=== PATIENT | male | born 1960 | race African-American/Black ===

== ENCOUNTER 2017-10-11 10:36 | Inpatient (IN) | payer OTHER ==
[2017-10-11 11:10] VITALS: BMI 22.8
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
[2017-10-11] MEDS ORDERED: MAG HYDROX/AL HYDROX/SIMETH 30 ML UNIT-DOSE CUP PO PRN (12:48)
[2017-10-11] MEDS ORDERED: guaiFENesin/D-METHORPHAN HB 10 ML UNIT-DOSE CUPS PO PRN (12:48)
[2017-10-11] MEDS ORDERED: MAGNESIUM CITRATE 300 ML BOTTLE PO PRN (12:48)
[2017-10-11] MEDS ORDERED: LOPERAMIDE HCL 2 MG CAPSULE PO PRN (12:48)
[2017-10-11] MEDS ORDERED: ACETAMINOPHEN 325 MG TABLET (FP) PO PRN (12:48)
[2017-10-11] MEDS ORDERED: P-EPHED 60MG/TRIPROLIDI 2.5MG TABLET PO PRN (12:48)
[2017-10-11] MEDS ORDERED: IBUPROFEN 400 MG TABLET (FP) PO PRN (12:48)
[2017-10-11] MEDS ORDERED: hydrOXYzine PAMOATE 25 MG CAPSULE (FP) PO PRN (12:48)
[2017-10-11] MEDS ORDERED: chlordiazePOXIDE HCL 25 MG CAPSULE PO PRN (12:48)
[2017-10-11] MEDS ORDERED: MENTHOL/PHENOL 1 EACH UD MM PRN (12:48)
[2017-10-11] MEDS ORDERED: MAGNESIUM HYDROX 2400MG/30ML ORAL SUSPENSION 30 ML CUP PO PRN (12:48)
[2017-10-11] MEDS ORDERED: chlordiazePOXIDE HCL 25 MG CAPSULE PO ONE (14:00)
[2017-10-11] MEDS: chlordiazePOXIDE HCL 25 MG CAPSULE PO SCH ×2 (17:45→22:29)
[2017-10-11 17:59] LABS: URINE APPEARANCE CLEAR; URINE BILIRUBIN NEGATIVE (NEGATIVE); URINE BLOOD NEGATIVE (NEGATIVE); URINE COLOR LTYELLOW; URINE GLUCOSE (UA) NEGATIVE (NEGATIVE); URINE KETONE NEGATIVE (NEGATIVE); URINE NITRITE NEGATIVE (NEGATIVE); URINE PROTEIN NEGATIVE (NEGATIVE); URINE UROBILINOGEN NEGATIVE mg/dL (0.2-1.0)
[2017-10-11 21:59] LABS: URINE LEUK ESTERASE Negative (NEGATIVE)
[2017-10-11] MEDS: levETIRAcetam 500 MG TABLET (FP) PO SCH (22:24)
[2017-10-11] MEDS: THIAMINE HCL 100 MG TABLET (FP) PO SCH (22:24)
[2017-10-11] MEDS: GABAPENTIN 300 MG CAPSULE (FP) PO SCH (22:24)
[2017-10-12] MEDS: chlordiazePOXIDE HCL 25 MG CAPSULE PO SCH ×4 (05:00→22:36)
--- NOTE | 2017-10-12 09:46 | EKG ---
Test Reason : Blood Pressure : / mmHG Vent. Rate : 081 BPM Atrial Rate : 081 BPM P-R Int : 132 ms QRS Dur : 072 ms QT Int : 358 ms P-R-T Axes : 072 049 056 degrees QTc Int : 415 ms NORMAL SINUS RHYTHM BIATRIAL ENLARGEMENT LEFT VENTRICULAR HYPERTROPHY CANNOT RULE OUT SEPTAL INFARCT , AGE UNDETERMINED ABNORMAL ECG NO PREVIOUS ECGS AVAILABLE Confirmed by JANIYA DELGADILLO, HAYLEY ([id number]) on 10/12/2017 9:46:27 AM Referred By: Confirmed By:HAYLEY DENSON MD
[2017-10-12 09:59] LABS: MCH 33.1 pg (25.7-33.7); MCHC 32.7 g/dl (32.0-35.9); MEAN CELL VOLUME 101.2 fl (80-96); MEAN PLT VOLUME 9.7 fl (7.5-11.1); PLATELET COUNT 177 K/MM3 (134-434); RDW 13.6 % (11.9-15.9); WHITE BLOOD COUNT 3.9 K/mm3 (4.0-10.0)
[2017-10-12 10:10] LABS: ALBUMIN 3.3 g/dl (3.4-5.0); ANION GAP 6 (8-16); CALCIUM 8.4 mg/dL (8.5-10.1); CO2 26 mmol/L (21-32); CREATININE 0.9 mg/dL (0.7-1.3); GLUCOSE,RANDOM 92 mg/dL (74-106); SGOT/AST 24 U/L (15-37); SGPT/ALT 30 U/L (12-78)
[2017-10-12 10:12] LABS: ALK PHOS 102 U/L (45-117); BILIRUBIN,TOTAL 0.7 mg/dL (0.2-1.0); TOT PROT 6.1 g/dl (6.4-8.2)
--- NOTE | 2017-10-12 10:19 | PN ---
S CIWA - CIWA Score Nausea/Vomitin Muscle Tremors: 3 Anxiety: 3 Agitation: 2 Paroxysmal Sweats: 1-Minimal Palms Moist Orientation: 0-Oriented Tacttile Disturbances: 1-Very Mild Itch/Numbness Auditory Disturbances: 1-Very Mild Visual Disturbances: 0-None Headache: 2-Mild CIWA-Ar Total Score: 16 BHS Progress Note (SOAP) Subjective: alert,irritable,anxious,interrupted sleep,tremor,pain in the body Objective: 10/12/17 10:16 Vital Signs Temperature 97.9 F 10/12/17 10:09 Pulse Rate 83 10/12/17 10:09 Respiratory Rate 18 10/12/17 10:09 Blood Pressure 127/69 10/12/17 10:09 O2 Sat by Pulse Oximetry (%) ekg nsr,lvh no chest pain,no sob,no dizziness Laboratory Last Values WBC 3.9 K/mm3 (4.0-10.0) L 10/12/17 07:00 RBC 3.67 M/mm3 (4.00-5.60) L 10/12/17 07:00 Hgb 12.1 GM/dL (11.7-16.9) 10/12/17 07:00 Hct 37.1 % (35.4-49) 10/12/17 07:00 MCV 101.2 fl (80-96) H 10/12/17 07:00 MCH 33.1 pg (25.7-33.7) 10/12/17 07:00 MCHC 32.7 g/dl (32.0-35.9) 10/12/17 07:00 RDW 13.6 % (11.9-15.9) 10/12/17 07:00 Plt Count 177 K/MM3 (134-434) 10/12/17 07:00 MPV 9.7 fl (7.5-11.1) 10/12/17 07:00 Sodium 142 mmol/L (136-145) 10/12/17 07:00 Potassium 4.1 mmol/L (3.5-5.1) 10/12/17 07:00 Chloride 110 mmol/L (98-107) H 10/12/17 07:00 Carbon Dioxide 26 mmol/L (21-32) 10/12/17 07:00 Anion Gap 6 (8-16) L 10/12/17 07:00 BUN 12 mg/dL (7-18) 10/12/17 07:00 Creatinine 0.9 mg/dL (0.7-1.3) D 10/12/17 07:00 Creat Clearance w eGFR > 60 (>60) 10/12/17 07:00 Random Glucose 92 mg/dL (74-106) D 10/12/17 07:00 Calcium 8.4 mg/dL (8.5-10.1) L 10/12/17 07:00 Total Bilirubin 0.7 mg/dL (0.2-1.0) 10/12/17 07:00 AST 24 U/L (15-37) 10/12/17 07:00 ALT 30 U/L (12-78) 10/12/17 07:00 Alkaline Phosphatase 102 U/L (45-117) 10/12/17 07:00 Total Protein 6.1 g/dl (6.4-8.2) L 10/12/17 07:00 Albumin 3.3 g/dl (3.4-5.0) L 10/12/17 07:00 Urine Color Ltyellow 10/11/17 15:30 Urine Appearance Clear 10/11/17 15:30 Urine pH 5.0 (5.0-8.0) 10/11/17 15:30 Ur Specific [place] 1.009 (1.001-1.035) 10/11/17 15:30 Urine Protein Negative (NEGATIVE) 10/11/17 15:30 Urine Glucose (UA) Negative (NEGATIVE) 10/11/17 15:30 Urine Ketones Negative (NEGATIVE) 10/11/17 15:30 Urine Blood Negative (NEGATIVE) 10/11/17 15:30 Urine Nitrite Negative (NEGATIVE) 10/11/17 15:30 Urine Bilirubin Negative (NEGATIVE) 10/11/17 15:30 Urine Urobilinogen Negative mg/dL (0.2-1.0) 10/11/17 15:30 Ur Leukocyte Esterase Negative (NEGATIVE) 10/11/17 15:30 Assessment: 10/12/17 10:18 withdrawal symptom Plan: continue detox
[2017-10-12] MEDS: PRENATAL VITAMINS W/ FOLIC ACID TABLET (FP) PO SCH (10:36)
[2017-10-12] MEDS: GABAPENTIN 300 MG CAPSULE (FP) PO SCH ×2 (10:36→22:35)
[2017-10-12] MEDS: levETIRAcetam 500 MG TABLET (FP) PO SCH ×2 (10:36→22:35)
[2017-10-12] MEDS: THIAMINE HCL 100 MG TABLET (FP) PO SCH (22:35)
[2017-10-13] MEDS: chlordiazePOXIDE HCL 25 MG CAPSULE PO SCH ×2 (05:26→10:42)
[2017-10-13] MEDS: PRENATAL VITAMINS W/ FOLIC ACID TABLET (FP) PO SCH (10:41)
[2017-10-13] MEDS: levETIRAcetam 500 MG TABLET (FP) PO SCH ×2 (10:41→22:21)
[2017-10-13] MEDS: GABAPENTIN 300 MG CAPSULE (FP) PO SCH ×2 (10:42→22:21)
--- NOTE | 2017-10-13 11:36 | PN ---
S CIWA - CIWA Score Nausea/Vomitin-No Nausea/No Vomiting Muscle Tremors: 4-Moderate,w/Arms Extend Anxiety: 3 Agitation: 3 Paroxysmal Sweats: 3 Orientation: 0-Oriented Tacttile Disturbances: 0-None Auditory Disturbances: 0-None Visual Disturbances: 0-None Headache: 0-None Present CIWA-Ar Total Score: 13 S Progress Note (SOAP) Subjective: agitation anxiety sweats interrupted sleep body aches Objective: 10/13/17 11:35 Vital Signs Temperature 97.7 F 10/13/17 09:46 Pulse Rate 61 10/13/17 09:46 Respiratory Rate 18 10/13/17 09:46 Blood Pressure 111/65 10/13/17 09:46 O2 Sat by Pulse Oximetry (%) Laboratory Tests 10/11/17 10/12/17 10/12/17 15:30 07:00 07:00 WBC 3.9 L RBC 3.67 L Hgb 12.1 Hct 37.1 MCV 101.2 H MCH 33.1 MCHC 32.7 RDW 13.6 Plt Count 177 MPV 9.7 Sodium 142 Potassium 4.1 Chloride 110 H Carbon Dioxide 26 Anion Gap 6 L BUN 12 Creatinine 0.9 D Creat Clearance w eGFR > 60 Random Glucose 92 D Calcium 8.4 L Total Bilirubin 0.7 AST 24 ALT 30 Alkaline Phosphatase 102 Total Protein 6.1 L Albumin 3.3 L Urine Color Ltyellow Urine Appearance Clear Urine pH 5.0 Ur Specific [place] 1.009 Urine Protein Negative Urine Glucose (UA) Negative Urine Ketones Negative Urine Blood Negative Urine Nitrite Negative Urine Bilirubin Negative Urine Urobilinogen Negative Ur Leukocyte Esterase Negative RPR Titer 10/12/17 07:00 WBC RBC Hgb Hct MCV MCH MCHC RDW Plt Count MPV Sodium Potassium Chloride Carbon Dioxide Anion Gap BUN Creatinine Creat Clearance w eGFR Random Glucose Calcium Total Bilirubin AST ALT Alkaline Phosphatase Total Protein Albumin Urine Color Urine Appearance Urine pH Ur Specific [place] Urine Protein Urine Glucose (UA) Urine Ketones Urine Blood Urine Nitrite Urine Bilirubin Urine Urobilinogen Ur Leukocyte Esterase RPR Titer Nonreactive aaox3 ambulating no acute distress Assessment: 10/13/17 11:35 withdrawal sx Plan: continue detox increase fluids
[2017-10-13] MEDS: chlordiazePOXIDE 5 MG CAPSULE PO SCH ×2 (17:32→22:21)
[2017-10-13] MEDS: THIAMINE HCL 100 MG TABLET (FP) PO SCH (22:21)
[2017-10-14] MEDS: chlordiazePOXIDE 5 MG CAPSULE PO SCH ×2 (05:20→10:28)
--- NOTE | 2017-10-14 10:08 | PN ---
S Progress Note (SOAP) Subjective: alert,irritable,anxious,interrupted sleep Objective: 10/14/17 10:06 Laboratory Last Values WBC 3.9 K/mm3 (4.0-10.0) L 10/12/17 07:00 RBC 3.67 M/mm3 (4.00-5.60) L 10/12/17 07:00 Hgb 12.1 GM/dL (11.7-16.9) 10/12/17 07:00 Hct 37.1 % (35.4-49) 10/12/17 07:00 MCV 101.2 fl (80-96) H 10/12/17 07:00 MCH 33.1 pg (25.7-33.7) 10/12/17 07:00 MCHC 32.7 g/dl (32.0-35.9) 10/12/17 07:00 RDW 13.6 % (11.9-15.9) 10/12/17 07:00 Plt Count 177 K/MM3 (134-434) 10/12/17 07:00 MPV 9.7 fl (7.5-11.1) 10/12/17 07:00 Sodium 142 mmol/L (136-145) 10/12/17 07:00 Potassium 4.1 mmol/L (3.5-5.1) 10/12/17 07:00 Chloride 110 mmol/L (98-107) H 10/12/17 07:00 Carbon Dioxide 26 mmol/L (21-32) 10/12/17 07:00 Anion Gap 6 (8-16) L 10/12/17 07:00 BUN 12 mg/dL (7-18) 10/12/17 07:00 Creatinine 0.9 mg/dL (0.7-1.3) D 10/12/17 07:00 Creat Clearance w eGFR > 60 (>60) 10/12/17 07:00 Random Glucose 92 mg/dL (74-106) D 10/12/17 07:00 Calcium 8.4 mg/dL (8.5-10.1) L 10/12/17 07:00 Total Bilirubin 0.7 mg/dL (0.2-1.0) 10/12/17 07:00 AST 24 U/L (15-37) 10/12/17 07:00 ALT 30 U/L (12-78) 10/12/17 07:00 Alkaline Phosphatase 102 U/L (45-117) 10/12/17 07:00 Total Protein 6.1 g/dl (6.4-8.2) L 10/12/17 07:00 Albumin 3.3 g/dl (3.4-5.0) L 10/12/17 07:00 Urine Color Ltyellow 10/11/17 15:30 Urine Appearance Clear 10/11/17 15:30 Urine pH 5.0 (5.0-8.0) 10/11/17 15:30 Ur Specific [place] 1.009 (1.001-1.035) 10/11/17 15:30 Urine Protein Negative (NEGATIVE) 10/11/17 15:30 Urine Glucose (UA) Negative (NEGATIVE) 10/11/17 15:30 Urine Ketones Negative (NEGATIVE) 10/11/17 15:30 Urine Blood Negative (NEGATIVE) 10/11/17 15:30 Urine Nitrite Negative (NEGATIVE) 10/11/17 15:30 Urine Bilirubin Negative (NEGATIVE) 10/11/17 15:30 Urine Urobilinogen Negative mg/dL (0.2-1.0) 10/11/17 15:30 Ur Leukocyte Esterase Negative (NEGATIVE) 10/11/17 15:30 RPR Titer Nonreactive (NONREACTIVE) 10/12/17 07:00 Vital Signs Temperature 98.2 F 10/14/17 06:12 Pulse Rate 60 10/14/17 06:12 Respiratory Rate 16 10/14/17 06:12 Blood Pressure 112/55 10/14/17 06:12 O2 Sat by Pulse Oximetry (%) Assessment: 10/14/17 10:07 withdrawal symptom Plan: continue detox,discharge in am
[2017-10-14] MEDS: GABAPENTIN 300 MG CAPSULE (FP) PO SCH ×2 (10:28→22:12)
[2017-10-14] MEDS: levETIRAcetam 500 MG TABLET (FP) PO SCH ×2 (10:28→22:12)
[2017-10-14] MEDS: PRENATAL VITAMINS W/ FOLIC ACID TABLET (FP) PO SCH (10:28)
[2017-10-14] MEDS: chlordiazePOXIDE HCL 10 MG CAPSULE PO SCH ×2 (17:31→22:12)
[2017-10-14] MEDS: THIAMINE HCL 100 MG TABLET (FP) PO SCH (22:12)
[2017-10-15] MEDS: chlordiazePOXIDE HCL 10 MG CAPSULE PO SCH ×2 (06:14→10:32)
--- NOTE | 2017-10-15 08:55 | DS ---
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 history of pneumothorax right nicotine dependence - Physical Exam Results Vital Signs: Vital Signs Temperature 96.3 F L 10/15/17 06:04 Pulse Rate 56 L 10/15/17 06:04 Respiratory Rate 16 10/15/17 06:04 Blood Pressure 95/53 10/15/17 06:04 O2 Sat by Pulse Oximetry (%) - Treatment Hospital Course: Detox Protocol Followed, Detoxed Safely, Responded well, Discharged Condition Good Patient has Accepted a Rehab Referral to: declined - Medication Discharge Medications: Ambulatory Orders Levetiracetam [Keppra -] 1,000 mg PO BID 09/20/16 Gabapentin [Neurontin -] 300 mg PO BID 10/11/17 - Diagnosis (1) Alcohol dependence with uncomplicated withdrawal Current Visit: No Status: Chronic (2) Cocaine dependence, uncomplicated Current Visit: No Status: Chronic (3) Seizure disorder Current Visit: No Status: Chronic (4) History of amputation of finger Current Visit: Yes Status: Acute (5) History of pneumothorax Current Visit: Yes Status: Acute (6) Nicotine dependence Current Visit: Yes Status: Chronic Qualifiers: Nicotine product type: cigarettes Substance use status: uncomplicated Qualified Code(s): F17.210 - Nicotine dependence, cigarettes, uncomplicated - AMA Did Patient Leave Against Medical Advice: No
[2017-10-15] MEDS: PRENATAL VITAMINS W/ FOLIC ACID TABLET (FP) PO SCH (10:32)
[2017-10-15] MEDS: GABAPENTIN 300 MG CAPSULE (FP) PO SCH (10:32)
[2017-10-15] MEDS: levETIRAcetam 500 MG TABLET (FP) PO SCH (10:32)
[2017-10-15 11:20] VITALS: BP 105/67; PULSE 66; TEMP 98.4
== END 2017-10-15 11:13 | disposition home or self-care (01) | DRG 774 ==
LOC: YASAS 10:36 → Y6N 13:12
PROVIDERS: ADMIT Internal Medicine; ATTEND Internal Medicine
PROC: HZ2ZZZZ Detoxification Services for Substance Abuse Treatment (ICD-10-PCS; principal; 2017-10-11)
DX: F10.230 Alcohol dependence with withdrawal, uncomplicated (principal); F14.20 Cocaine dependence, uncomplicated; F17.210 Nicotine dependence, cigarettes, uncomplicated; G40.909 Epilepsy, unspecified, not intractable, without status epilepticus; Z87.09 Personal history of other diseases of the respiratory system; Z89.029 Acquired absence of unspecified finger(s)
CPT/HCPCS: 36415; 80053; 81003; 85027; 86593; 93005; 93010

== ENCOUNTER 2021-11-03 14:53 | Inpatient (IN) | payer OTHER ==
[2021-11-03] MEDS ORDERED: MENTHOL/PHENOL 1 EACH UD MM PRN (15:20)
[2021-11-03] MEDS ORDERED: ONDANSETRON *ODT* 4 MG TABLET SL PRN (15:20)
[2021-11-03] MEDS ORDERED: ACETAMINOPHEN 325 MG TABLET (FP) PO PRN ×2 (15:20)
[2021-11-03] MEDS ORDERED: MAGNESIUM HYDROX 2400MG/30ML ORAL SUSPENSION 30 ML CUP PO PRN (15:20)
[2021-11-03] MEDS ORDERED: MAGNESIUM CITRATE 300 ML BOTTLE PO PRN (15:20)
[2021-11-03] MEDS ORDERED: IBUPROFEN 400 MG TABLET (FP) PO PRN (15:20)
[2021-11-03] MEDS ORDERED: NICOTINE 10 MG CARTRIDGE (INHALER) IH PRN (15:20)
[2021-11-03] MEDS ORDERED: METHOCARBAMOL 500 MG TABLET PO PRN (15:20)
[2021-11-03] MEDS ORDERED: MAG HYDROX/AL HYDROX/SIMETH 30 ML UNIT-DOSE CUP PO PRN (15:20)
[2021-11-03] MEDS ORDERED: BISMUTH SUBSALICYLATE 524 MG/30 ML PO PRN (15:20)
[2021-11-03 15:34] VITALS: BMI 21.6
[2021-11-03] MEDS: hydrOXYzine PAMOATE 25 MG CAPSULE (FP) PO SCH ×2 (17:59→21:48)
[2021-11-03] MEDS: PRENATAL VITAMINS W/ FOLIC ACID TABLET (FP) PO SCH (18:02)
[2021-11-03] MEDS: NICOTINE 14 MG/24 HOURS TOPICAL PATCH TD SCH (18:02)
[2021-11-03] MEDS ORDERED: levETIRAcetam 500 MG TABLET (FP) PO SCH ×2 (22:00)
[2021-11-03] MEDS ORDERED: MELATONIN 5 MG TABLETS PO SCH (22:00)
[2021-11-03] MEDS ORDERED: THIAMINE HCL 100 MG TABLET (FP) PO SCH (22:00)
[2021-11-03] MEDS ORDERED: PHENYTOIN NA EXTENDED 100 MG CAPSULE (FP) PO SCH ×2 (22:00)
[2021-11-04] MEDS: hydrOXYzine PAMOATE 25 MG CAPSULE (FP) PO SCH ×3 (06:58→10:56)
[2021-11-04 08:57] VITALS: BP 100/58; PULSE 59; TEMP 97.3
[2021-11-04] MEDS ORDERED: levETIRAcetam 500 MG TABLET (FP) PO SCH (10:00)
[2021-11-04] MEDS ORDERED: PHENYTOIN NA EXTENDED 100 MG CAPSULE (FP) PO SCH (10:15)
[2021-11-04 10:49] LABS: HEMATOCRIT 39.9 % (35.4-49); HEMOGLOBIN 13.4 GM/dL (11.7-16.9); MCH 35.6 pg (25.7-33.7); MCHC 33.6 g/dl (32.0-35.9); MEAN PLT VOLUME 9.7 fl (7.5-11.1); PLATELET COUNT 186 10^3/uL (134-434); RBC 3.76 M/mm3 (4.00-5.60); RDW 13.5 % (11.9-15.9); WHITE BLOOD COUNT 3.4 K/mm3 (4.0-10.0)
[2021-11-04 10:50] LABS: ALBUMIN 3.4 g/dl (3.4-5.0); CALCIUM 8.8 mg/dL (8.5-10.1)
[2021-11-04] MEDS: PRENATAL VITAMINS W/ FOLIC ACID TABLET (FP) PO SCH (10:50)
[2021-11-04 10:55] LABS: TOT PROT 6.6 g/dl (6.4-8.2)
[2021-11-04] MEDS: NICOTINE 14 MG/24 HOURS TOPICAL PATCH TD SCH (10:55)
[2021-11-04 10:56] LABS: BILIRUBIN,TOTAL 0.4 mg/dL (0.2-1)
== END 2021-11-04 12:00 | disposition other institution (70) | DRG 774 ==
LOC: YASAS 14:53 → UNDOADMIN 16:00 → Y3N 16:00
PROVIDERS: ADMIT Allergy & Immunology; ATTEND Allergy & Immunology
PROC: HZ2ZZZZ Detoxification Services for Substance Abuse Treatment (ICD-10-PCS; principal; 2021-11-03)
DX: F10.20 Alcohol dependence, uncomplicated (principal); F14.20 Cocaine dependence, uncomplicated; F17.210 Nicotine dependence, cigarettes, uncomplicated; G40.909 Epilepsy, unspecified, not intractable, without status epilepticus; Z89.022 Acquired absence of left finger(s); Z86.19 Personal history of other infectious and parasitic diseases; Z59.01 Sheltered homelessness
CPT/HCPCS: 36415; 80053; 85027; 86593; 86780; C9803; U0003; U0005

== ENCOUNTER 2021-11-04 11:50 | Inpatient (IN) | payer OTHER ==
[2021-11-04] MEDS ORDERED: IBUPROFEN 400 MG TABLET (FP) PO PRN (14:13)
[2021-11-04] MEDS ORDERED: MAGNESIUM CITRATE 300 ML BOTTLE PO PRN (14:13)
[2021-11-04] MEDS ORDERED: MAGNESIUM HYDROX 2400MG/30ML ORAL SUSPENSION 30 ML CUP PO PRN (14:13)
[2021-11-04] MEDS ORDERED: LOPERAMIDE HCL 2 MG CAPSULE PO PRN (14:13)
[2021-11-04] MEDS ORDERED: MAG HYDROX/AL HYDROX/SIMETH 30 ML UNIT-DOSE CUP PO PRN (14:13)
[2021-11-04] MEDS ORDERED: NICOTINE 10 MG CARTRIDGE (INHALER) IH PRN (14:13)
[2021-11-04] MEDS ORDERED: ACETAMINOPHEN 325 MG TABLET (FP) PO PRN (14:13)
[2021-11-04] MEDS ORDERED: guaiFENesin 200 MG/10 ML 10 ML UNIT-DOSE CUPS PO PRN (14:13)
[2021-11-04] MEDS ORDERED: hydrOXYzine PAMOATE 25 MG CAPSULE (FP) PO PRN (14:13)
[2021-11-04] MEDS ORDERED: P-EPHED 60MG/TRIPROLIDI 2.5MG TABLET PO PRN (14:13)
[2021-11-04] MEDS ORDERED: MENTHOL/PHENOL 1 EACH UD MM PRN (14:13)
[2021-11-04] MEDS ORDERED: PT OWN MED DRAWER 7, Y5N ONE (20:03)
[2021-11-04] MEDS: levETIRAcetam 500 MG TABLET (FP) PO SCH (21:46)
[2021-11-04] MEDS: THIAMINE HCL 100 MG TABLET (FP) PO SCH (21:46)
[2021-11-04] MEDS: PHENYTOIN NA EXTENDED 100 MG CAPSULE (FP) PO SCH (21:46)
[2021-11-04] MEDS: MELATONIN 5 MG TABLETS PO SCH (21:47)
[2021-11-05] MEDS: PHENYTOIN NA EXTENDED 100 MG CAPSULE (FP) PO SCH ×2 (09:03→21:30)
[2021-11-05] MEDS: NICOTINE 7 MG/24 HOURS TOPICAL PATCH TD SCH (09:04)
[2021-11-05] MEDS: levETIRAcetam 500 MG TABLET (FP) PO SCH ×2 (09:04→21:30)
[2021-11-05] MEDS: PRENATAL VITAMINS W/ FOLIC ACID TABLET (FP) PO SCH (09:04)
[2021-11-05] MEDS ORDERED: PT OWN MED DRAWER 7, Y5N ONE (20:46)
[2021-11-05] MEDS: MELATONIN 5 MG TABLETS PO SCH (21:30)
[2021-11-05] MEDS: THIAMINE HCL 100 MG TABLET (FP) PO SCH (21:30)
[2021-11-06] MEDS ORDERED: PT OWN MED DRAWER 7, Y5N ONE ×2 (08:43→20:14)
[2021-11-06] MEDS: NICOTINE 7 MG/24 HOURS TOPICAL PATCH TD SCH (09:40)
[2021-11-06] MEDS: PHENYTOIN NA EXTENDED 100 MG CAPSULE (FP) PO SCH ×2 (09:40→21:20)
[2021-11-06] MEDS: PRENATAL VITAMINS W/ FOLIC ACID TABLET (FP) PO SCH (09:40)
[2021-11-06] MEDS: levETIRAcetam 500 MG TABLET (FP) PO SCH ×2 (09:40→21:19)
[2021-11-06] MEDS: MELATONIN 5 MG TABLETS PO SCH (21:20)
[2021-11-06] MEDS: THIAMINE HCL 100 MG TABLET (FP) PO SCH (21:20)
[2021-11-07] MEDS: AMMONIUM LACTATE 12% LOTION 225 GM BOTTLE TP PRN (09:58)
[2021-11-07] MEDS: levETIRAcetam 500 MG TABLET (FP) PO SCH ×2 (09:58→21:29)
[2021-11-07] MEDS: PRENATAL VITAMINS W/ FOLIC ACID TABLET (FP) PO SCH (09:59)
[2021-11-07] MEDS: PHENYTOIN NA EXTENDED 100 MG CAPSULE (FP) PO SCH ×2 (09:59→21:29)
[2021-11-07] MEDS: NICOTINE 7 MG/24 HOURS TOPICAL PATCH TD SCH (09:59)
[2021-11-07] MEDS ORDERED: PT OWN MED DRAWER 7, Y5N ONE (19:34)
[2021-11-07] MEDS: THIAMINE HCL 100 MG TABLET (FP) PO SCH (21:29)
[2021-11-07] MEDS: MELATONIN 5 MG TABLETS PO SCH (21:30)
[2021-11-08] MEDS: PHENYTOIN NA EXTENDED 100 MG CAPSULE (FP) PO SCH ×2 (09:43→21:10)
[2021-11-08] MEDS: levETIRAcetam 500 MG TABLET (FP) PO SCH ×2 (09:43→21:10)
[2021-11-08] MEDS: PRENATAL VITAMINS W/ FOLIC ACID TABLET (FP) PO SCH (09:43)
[2021-11-08] MEDS: NICOTINE 7 MG/24 HOURS TOPICAL PATCH TD SCH (09:44)
[2021-11-08] MEDS: AMMONIUM LACTATE 12% LOTION 225 GM BOTTLE TP PRN (09:44)
[2021-11-08] MEDS: MELATONIN 5 MG TABLETS PO SCH (21:10)
[2021-11-08] MEDS: THIAMINE HCL 100 MG TABLET (FP) PO SCH (21:10)
[2021-11-09] MEDS ORDERED: PT OWN MED DRAWER 7, Y5N ONE ×2 (08:04→20:29)
[2021-11-09] MEDS: PHENYTOIN NA EXTENDED 100 MG CAPSULE (FP) PO SCH ×2 (09:17→21:15)
[2021-11-09] MEDS: NICOTINE 7 MG/24 HOURS TOPICAL PATCH TD SCH (09:18)
[2021-11-09] MEDS: PRENATAL VITAMINS W/ FOLIC ACID TABLET (FP) PO SCH (09:18)
[2021-11-09] MEDS: levETIRAcetam 500 MG TABLET (FP) PO SCH ×2 (09:18→21:16)
[2021-11-09] MEDS: MELATONIN 5 MG TABLETS PO SCH (21:15)
[2021-11-09] MEDS: THIAMINE HCL 100 MG TABLET (FP) PO SCH (21:16)
[2021-11-10] MEDS: PHENYTOIN NA EXTENDED 100 MG CAPSULE (FP) PO SCH ×2 (09:30→21:13)
[2021-11-10] MEDS: levETIRAcetam 500 MG TABLET (FP) PO SCH ×2 (09:31→21:13)
[2021-11-10] MEDS: PRENATAL VITAMINS W/ FOLIC ACID TABLET (FP) PO SCH (09:31)
[2021-11-10] MEDS: NICOTINE 7 MG/24 HOURS TOPICAL PATCH TD SCH (09:31)
[2021-11-10] MEDS ORDERED: PT OWN MED DRAWER 7, Y5N ONE (19:07)
[2021-11-10] MEDS: MELATONIN 5 MG TABLETS PO SCH (21:13)
[2021-11-10] MEDS: THIAMINE HCL 100 MG TABLET (FP) PO SCH (21:13)
[2021-11-11] MEDS ORDERED: PT OWN MED DRAWER 7, Y5N ONE ×4 (08:49→21:11)
[2021-11-11] MEDS: AMMONIUM LACTATE 12% LOTION 225 GM BOTTLE TP PRN (09:42)
[2021-11-11] MEDS: PHENYTOIN NA EXTENDED 100 MG CAPSULE (FP) PO SCH ×2 (09:42→21:08)
[2021-11-11] MEDS: levETIRAcetam 500 MG TABLET (FP) PO SCH ×2 (09:42→21:08)
[2021-11-11] MEDS: PRENATAL VITAMINS W/ FOLIC ACID TABLET (FP) PO SCH (09:43)
[2021-11-11] MEDS: NICOTINE 7 MG/24 HOURS TOPICAL PATCH TD SCH (09:43)
[2021-11-11] MEDS: METHOCARBAMOL 500 MG TABLET PO SCH ×3 (15:01→21:08)
[2021-11-11] MEDS: HYDROCORTISONE 1% TOPICAL CREAM 30 GM TUBE TP PRN ×2 (15:03→21:10)
[2021-11-11] MEDS: MELATONIN 5 MG TABLETS PO SCH (21:08)
[2021-11-11] MEDS: THIAMINE HCL 100 MG TABLET (FP) PO SCH (21:08)
[2021-11-12 06:41] VITALS: PULSE 51; TEMP 97.8
[2021-11-12] MEDS ORDERED: PT OWN MED DRAWER 7, Y5N ONE (08:13)
[2021-11-12] MEDS: levETIRAcetam 500 MG TABLET (FP) PO SCH (09:21)
[2021-11-12] MEDS: METHOCARBAMOL 500 MG TABLET PO SCH ×2 (09:21→13:47)
[2021-11-12] MEDS: PRENATAL VITAMINS W/ FOLIC ACID TABLET (FP) PO SCH (09:22)
[2021-11-12] MEDS: PHENYTOIN NA EXTENDED 100 MG CAPSULE (FP) PO SCH (09:22)
[2021-11-12] MEDS: NICOTINE 7 MG/24 HOURS TOPICAL PATCH TD SCH (10:06)
[2021-11-12] MEDS: HYDROCORTISONE 1% TOPICAL CREAM 30 GM TUBE TP PRN (10:07)
[2021-11-12 12:05] VITALS: BP 119/58
== END 2021-11-12 14:35 | disposition home or self-care (01) | DRG 772 ==
LOC: YASAS 11:50 → Y3E 11:51
PROVIDERS: ADMIT Allergy & Immunology; ATTEND Allergy & Immunology
PROC: HZ42ZZZ Group Counseling for Substance Abuse Treatment, Cognitive-Behavioral (ICD-10-PCS; principal; 2021-11-04)
DX: F10.20 Alcohol dependence, uncomplicated (principal); F14.20 Cocaine dependence, uncomplicated; F17.210 Nicotine dependence, cigarettes, uncomplicated; G40.909 Epilepsy, unspecified, not intractable, without status epilepticus
CPT/HCPCS: 36415; 80177; 80185; C9803; U0003; U0005

== ENCOUNTER 2022-01-30 19:45 | Inpatient (IN) | payer OTHER ==
[2022-01-30 20:01] VITALS: BMI 22.3
[2022-01-30] MEDS ORDERED: LORazepam 2 MG/ML SDV VIAL IVPUSH ONE (20:10)
[2022-01-30] MEDS ORDERED: levETIRAcetam 500 MG/5 ML INJECTION VIAL IVPB ONE ×2 (20:17→21:18)
[2022-01-30] MEDS ORDERED: FOLIC ACID INJECTION - 1 MG, THIAMINE HCL 100 MG, MULTIVIT INJECTION ADULT 10 ML in SOD... IVPB ONE (20:17)
[2022-01-30] MEDS ORDERED: diazePAM CARPU-JECT 10 MG/2 ML DISP.SYRIN IM ONE (20:29)
[2022-01-30] MEDS ORDERED: diazePAM CARPU-JECT 10 MG/2 ML DISP.SYRIN ONE (20:31)
[2022-01-30] MEDS ORDERED: DIPHTH,PERTUSS(ACELL),TET 0.5 ML DISP.SYRIN IM ONE ×2 (20:46→21:18)
[2022-01-30 21:35] LABS: BASO % 0.8 % (0-2.0); EOS % 0.7 % (0-4.5); HEMATOCRIT 36.1 % (35.4-49); HEMOGLOBIN 12.1 GM/dL (11.7-16.9); LYMPH % 10.7 % (8-40); MCHC 33.5 g/dl (32.0-35.9); MEAN CELL VOLUME 104.5 fl (80-96); MEAN PLT VOLUME 9.1 fl (7.5-11.1); MONO % 10.7 % (3.8-10.2); NEUT % 77.1 % (42.8-82.8); PLATELET COUNT 139 10^3/uL (134-434); RBC 3.46 M/mm3 (4.00-5.60); RDW 14.3 % (11.9-15.9); WHITE BLOOD COUNT 4.9 K/mm3 (4.0-10.0)
[2022-01-30 21:41] LABS: CHLORIDE 104 mmol/L (98-107); SODIUM 138 mmol/L (136-145)
[2022-01-30 21:43] LABS: CALCIUM 8.7 mg/dL (8.5-10.1); PROTHROMBIN TIME (PATIENT) 11.5 SEC (9.7-13.0)
[2022-01-30 21:44] LABS: ALBUMIN 3.7 g/dl (3.4-5.0); ANION GAP 9 MMOL/L (8-16); BLOOD UREA NITROGEN 14.5 mg/dL (7-18); CO2 25 mmol/L (21-32); GLUCOSE,RANDOM 104 mg/dL (74-106); MAGNESIUM 2.4 mg/dL (1.8-2.4)
[2022-01-30 21:47] LABS: CREATININE 1.3 mg/dL (0.55-1.3); SGOT/AST 51 U/L (15-37); SGPT/ALT 46 U/L (13-61)
[2022-01-30 21:48] LABS: BILIRUBIN,TOTAL 0.4 mg/dL (0.2-1)
[2022-01-30 21:49] LABS: TOT PROT 6.9 g/dl (6.4-8.2)
[2022-01-30 21:50] LABS: ALK PHOS 139 U/L (45-117)
[2022-01-31 03:06] LABS: OPIATES, URI NEGATIVE (NEGATIVE); PHENCYCLIDINE,URINE NEGATIVE (NEGATIVE); URINE BARBITURATES NEGATIVE (NEGATIVE)
[2022-01-31 03:07] LABS: METHADONE, UR NEGATIVE (NEGATIVE)
[2022-01-31 03:15] LABS: COCAINE, UR POSITIVE (NEGATIVE); URINE AMPHETAMINES NEGATIVE (NEGATIVE); URINE BENZODIAZEPINES POSITIVE (NEGATIVE)
[2022-01-31] MEDS ORDERED: LORazepam 1 MG TABLET PO PRN (03:34)
[2022-01-31] MEDS ORDERED: LORazepam 1 MG TABLET ONE ×2 (05:23→09:58)
[2022-01-31] MEDS: LORazepam 1 MG TABLET PO SCH ×4 (05:30→22:45)
[2022-01-31] MEDS: ENOXAPARIN NA (PORCINE) 40 MG/0.4 ML DISP.SYRIN SQ SCH (10:06)
[2022-01-31] MEDS ORDERED: LORazepam 2 MG/ML SDV VIAL IM ONE (14:30)
[2022-01-31] MEDS ORDERED: LORazepam 2 MG/ML SDV VIAL IVPUSH ONE (21:28)
[2022-02-01] MEDS: LORazepam 1 MG TABLET PO SCH ×4 (04:49→22:29)
[2022-02-01 08:33] LABS: ALBUMIN 3.8 g/dl (3.4-5.0); CALCIUM 9.1 mg/dL (8.5-10.1)
[2022-02-01 08:35] LABS: CREATININE 0.9 mg/dL (0.55-1.3)
[2022-02-01 08:36] LABS: PHOSPHOROUS 3.1 mg/dL (2.5-4.9)
[2022-02-01 08:37] LABS: BILIRUBIN,TOTAL 1.1 mg/dL (0.2-1)
[2022-02-01 10:02] LABS: MAGNESIUM 2.2 mg/dL (1.8-2.4)
[2022-02-01] MEDS: levETIRAcetam 500 MG TABLET (FP) PO SCH ×2 (11:15→21:48)
[2022-02-01] MEDS: ENOXAPARIN NA (PORCINE) 40 MG/0.4 ML DISP.SYRIN SQ SCH (11:16)
[2022-02-01] MEDS ORDERED: AMPICILLIN NA/SULBACTAM NA 1.5 GM in SODIUM CHLORIDE 100 ML IVPB SCH (11:30)
[2022-02-01] MEDS ORDERED: SODIUM CHLORIDE 100 ML IVPB ONE ×2 (11:32→15:06)
[2022-02-01] MEDS ORDERED: AMPICILLIN NA/SULBACTAM NA 1.5 GM VIAL ONE ×2 (11:32→15:06)
[2022-02-01] MEDS: PHENYTOIN NA EXTENDED 100 MG CAPSULE (FP) PO SCH ×2 (11:40→21:48)
[2022-02-01] MEDS ORDERED: LORazepam 2 MG/ML SDV VIAL IVPUSH ONE (12:07)
[2022-02-01] MEDS ORDERED: diphenhydrAMINE HCL 25 MG CAPSULE (FP) PO ONE (15:03)
[2022-02-01] MEDS: amLODIPine BESYLATE 2.5 MG TABLET (FP) PO SCH (15:36)
[2022-02-01] MEDS ORDERED: ACETAMINOPHEN 325 MG TABLET (FP) PO PRN (16:38)
[2022-02-01] MEDS: AMOX TR/POT CLAV 875MG/125MG TABLETS (FP) PO SCH (18:35)
[2022-02-01] MEDS ORDERED: MELATONIN 5 MG TABLETS PO SCH (22:00)
[2022-02-01] MEDS ORDERED: ATORVASTATIN CA 40 MG TABLET (FP) PO SCH (22:00)
[2022-02-02] MEDS ORDERED: LORazepam 0.5 MG TABLET PO PRN
[2022-02-02] MEDS ORDERED: LORazepam 0.5 MG TABLET PO SCH (05:00)
[2022-02-02] MEDS: AMOX TR/POT CLAV 875MG/125MG TABLETS (FP) PO SCH (08:02)
[2022-02-02] MEDS: levETIRAcetam 500 MG TABLET (FP) PO SCH (10:00)
[2022-02-02] MEDS: PHENYTOIN NA EXTENDED 100 MG CAPSULE (FP) PO SCH (10:00)
[2022-02-02] MEDS: ENOXAPARIN NA (PORCINE) 40 MG/0.4 ML DISP.SYRIN SQ SCH (10:01)
[2022-02-02] MEDS: amLODIPine BESYLATE 2.5 MG TABLET (FP) PO SCH (10:01)
[2022-02-02 10:14] LABS: HEMATOCRIT 42.6 % (35.4-49); HEMOGLOBIN 14.4 GM/dL (11.7-16.9); MCH 35.3 pg (25.7-33.7); MCHC 33.9 g/dl (32.0-35.9); MEAN CELL VOLUME 104.2 fl (80-96); MEAN PLT VOLUME 10.2 fl (7.5-11.1); PLATELET COUNT 137 10^3/uL (134-434); RBC 4.09 M/mm3 (4.00-5.60); RDW 14.1 % (11.9-15.9)
[2022-02-02 10:51] LABS: ALBUMIN 3.8 g/dl (3.4-5.0); BILIRUBIN,TOTAL 0.7 mg/dL (0.2-1); BLOOD UREA NITROGEN 9.2 mg/dL (7-18); CALCIUM 8.8 mg/dL (8.5-10.1); CREATININE 0.9 mg/dL (0.55-1.3); MAGNESIUM 2.1 mg/dL (1.8-2.4); TOT PROT 7.3 g/dl (6.4-8.2)
[2022-02-02 16:13] VITALS: BP 110/57; PULSE 72; TEMP 97.7
[2022-02-03] MEDS ORDERED: LORazepam 0.5 MG TABLET PO ONE (05:00)
== END 2022-02-02 17:27 | disposition other institution (70) | DRG 53 ==
LOC: JER 19:45 → JERBED 20:19 → J8W 01-31 15:25
PROVIDERS: ADMIT Internal Medicine; ATTEND Internal Medicine
DX: R56.9 Unspecified convulsions (principal); F14.20 Cocaine dependence, uncomplicated; F10.230 Alcohol dependence with withdrawal, uncomplicated; I10 Essential (primary) hypertension; Z91.14 Patient's other noncompliance with medication regimen; S02.2XXA Fracture of nasal bones, initial encounter for closed fracture; S00.212A Abrasion of left eyelid and periocular area, initial encounter; S00.12XA Contusion of left eyelid and periocular area, initial encounter; W18.39XA Other fall on same level, initial encounter; Y93.9 Activity, unspecified; Y92.238 Other place in hospital as the place of occurrence of the external cause; D75.89 Other specified diseases of blood and blood-forming organs; L03.113 Cellulitis of right upper limb; J43.9 Emphysema, unspecified
CPT/HCPCS: 36415; 70450-TC; 70486-TC; 71045-TC-FY; 72125-TC; 80053; 80061; 80177; 80307; 82962; 83735; 84100; 84443; 85025; 85027; 85610; 87040; 87081; 90715; 93005; 93010; 97116-GP; 97161-GP; 99291; C9803; U0003; U0005

== ENCOUNTER 2022-02-08 21:46 | Inpatient (IN) | payer OTHER ==
[2022-02-08 22:24] VITALS: BMI 20.7
[2022-02-08] MEDS ORDERED: MAGNESIUM HYDROX 2400MG/30ML ORAL SUSPENSION 30 ML CUP PO PRN (23:00)
[2022-02-08] MEDS ORDERED: METHOCARBAMOL 500 MG TABLET PO PRN (23:00)
[2022-02-08] MEDS ORDERED: ACETAMINOPHEN 325 MG TABLET (FP) PO PRN ×2 (23:00)
[2022-02-08] MEDS ORDERED: ONDANSETRON *ODT* 4 MG TABLET SL PRN (23:00)
[2022-02-08] MEDS ORDERED: MAG HYDROX/AL HYDROX/SIMETH 30 ML UNIT-DOSE CUP PO PRN (23:00)
[2022-02-08] MEDS ORDERED: MAGNESIUM CITRATE 300 ML BOTTLE PO PRN (23:00)
[2022-02-08] MEDS ORDERED: MENTHOL/PHENOL 1 EACH UD MM PRN (23:00)
[2022-02-08] MEDS ORDERED: PHENYTOIN NA EXTENDED 100 MG CAPSULE (FP) PO SCH (23:00)
[2022-02-08] MEDS ORDERED: levETIRAcetam 500 MG TABLET (FP) PO SCH (23:00)
[2022-02-08] MEDS ORDERED: LOPERAMIDE HCL 2 MG CAPSULE PO PRN (23:00)
[2022-02-08] MEDS ORDERED: MELATONIN 5 MG TABLETS PO PRN (23:00)
[2022-02-08] MEDS ORDERED: IBUPROFEN 400 MG TABLET (FP) PO PRN (23:00)
[2022-02-08] MEDS ORDERED: hydrOXYzine PAMOATE 25 MG CAPSULE (FP) PO PRN (23:00)
[2022-02-08] MEDS ORDERED: BISMUTH SUBSALICYLATE 524 MG/30 ML PO PRN (23:00)
[2022-02-08] MEDS ORDERED: chlordiazePOXIDE HCL 25 MG CAPSULE PO PRN (23:33)
[2022-02-09] MEDS: chlordiazePOXIDE HCL 25 MG CAPSULE PO SCH ×5 (00:30→23:10)
[2022-02-09] MEDS: levETIRAcetam 500 MG TABLET (FP) PO SCH ×2 (10:32→22:39)
[2022-02-09] MEDS: PRENATAL VITAMINS W/ FOLIC ACID TABLET (FP) PO SCH (10:33)
[2022-02-09] MEDS: PHENYTOIN NA EXTENDED 100 MG CAPSULE (FP) PO SCH ×2 (10:33→22:39)
[2022-02-09 16:15] LABS: HEMATOCRIT 37.3 % (35.4-49); HEMOGLOBIN 12.5 GM/dL (11.7-16.9); MCH 35.4 pg (25.7-33.7); MCHC 33.6 g/dl (32.0-35.9); MEAN CELL VOLUME 105.2 fl (80-96); PLATELET COUNT 225 10^3/uL (134-434); RBC 3.54 M/mm3 (4.00-5.60); RDW 13.9 % (11.9-15.9); WHITE BLOOD COUNT 3.1 K/mm3 (4.0-10.0)
[2022-02-09 16:22] LABS: CALCIUM 8.7 mg/dL (8.5-10.1)
[2022-02-09 16:24] LABS: ALBUMIN 3.6 g/dl (3.4-5.0); BLOOD UREA NITROGEN 19.8 mg/dL (7-18)
[2022-02-09 16:26] LABS: CREATININE 1.2 mg/dL (0.55-1.3)
[2022-02-09 16:28] LABS: BILIRUBIN,TOTAL 0.4 mg/dL (0.2-1); TOT PROT 6.8 g/dl (6.4-8.2)
[2022-02-09] MEDS ORDERED: THIAMINE HCL 100 MG TABLET (FP) PO SCH (22:00)
[2022-02-10] MEDS: chlordiazePOXIDE HCL 25 MG CAPSULE PO SCH ×2 (06:23→10:03)
[2022-02-10 08:08] LABS: SARS-CoV-2 NAA Not Detected (Not Detected)
[2022-02-10] MEDS: levETIRAcetam 500 MG TABLET (FP) PO SCH (10:02)
[2022-02-10] MEDS: PHENYTOIN NA EXTENDED 100 MG CAPSULE (FP) PO SCH (10:02)
[2022-02-10] MEDS: PRENATAL VITAMINS W/ FOLIC ACID TABLET (FP) PO SCH (10:03)
[2022-02-10 13:43] VITALS: BP 128/76; PULSE 64; TEMP 97.7
[2022-02-11] MEDS ORDERED: chlordiazePOXIDE HCL 10 MG CAPSULE PO PRN
[2022-02-11] MEDS ORDERED: chlordiazePOXIDE HCL 10 MG CAPSULE PO SCH (05:00)
[2022-02-12] MEDS ORDERED: chlordiazePOXIDE HCL 10 MG CAPSULE PO SCH (05:00)
[2022-02-13] MEDS ORDERED: chlordiazePOXIDE HCL 10 MG CAPSULE PO ONE (05:00)
== END 2022-02-10 17:16 | disposition left against medical advice (07) | DRG 770 ==
LOC: YASAS 21:46 → Y3N 23:13
PROVIDERS: ADMIT Allergy & Immunology; ATTEND Allergy & Immunology
PROC: HZ2ZZZZ Detoxification Services for Substance Abuse Treatment (ICD-10-PCS; principal; 2022-02-08)
DX: F10.230 Alcohol dependence with withdrawal, uncomplicated (principal); F14.20 Cocaine dependence, uncomplicated; F17.210 Nicotine dependence, cigarettes, uncomplicated; G40.909 Epilepsy, unspecified, not intractable, without status epilepticus; Z89.022 Acquired absence of left finger(s)
CPT/HCPCS: 36415; 80053; 80185; 85027; 86593; 86780; C9803-CS; U0003; U0005

== ENCOUNTER 2022-02-25 21:06 | Inpatient (IN) | payer OTHER ==
[2022-02-25 22:46] VITALS: BMI 21.2
[2022-02-26] MEDS ORDERED: LOPERAMIDE HCL 2 MG CAPSULE PO PRN (00:44)
[2022-02-26] MEDS ORDERED: IBUPROFEN 400 MG TABLET (FP) PO PRN (00:44)
[2022-02-26] MEDS ORDERED: BISMUTH SUBSALICYLATE 524 MG/30 ML PO PRN (00:44)
[2022-02-26] MEDS ORDERED: ONDANSETRON *ODT* 4 MG TABLET SL PRN (00:44)
[2022-02-26] MEDS ORDERED: NICOTINE POLACRILEX 2 MG GUM BUC PRN (00:44)
[2022-02-26] MEDS ORDERED: DICYCLOMINE HCL 10 MG CAPSULE PO PRN (00:44)
[2022-02-26] MEDS ORDERED: MAGNESIUM HYDROX 2400MG/30ML ORAL SUSPENSION 30 ML CUP PO PRN (00:44)
[2022-02-26] MEDS ORDERED: hydrOXYzine PAMOATE 25 MG CAPSULE (FP) PO PRN (00:44)
[2022-02-26] MEDS ORDERED: MAGNESIUM CITRATE 300 ML BOTTLE PO PRN (00:44)
[2022-02-26] MEDS ORDERED: P-EPHED 60MG/TRIPROLIDI 2.5MG TABLET PO PRN (00:44)
[2022-02-26] MEDS ORDERED: BENZOCAINE/MENTHOL (CHLORASEPTIC ) LOZENGE MM PRN (00:44)
[2022-02-26] MEDS ORDERED: MAG HYDROX/AL HYDROX/SIMETH 30 ML UNIT-DOSE CUP PO PRN (00:44)
[2022-02-26] MEDS ORDERED: ACETAMINOPHEN 325 MG TABLET (FP) PO PRN ×2 (00:44)
[2022-02-26] MEDS ORDERED: guaiFENesin 200 MG/10 ML 10 ML UNIT-DOSE CUPS PO PRN (00:44)
[2022-02-26] MEDS: amLODIPine BESYLATE 2.5 MG TABLET (FP) PO SCH (11:41)
[2022-02-26] MEDS: PHENYTOIN NA EXTENDED 100 MG CAPSULE (FP) PO SCH ×2 (11:41→21:13)
[2022-02-26] MEDS: NICOTINE 14 MG/24 HOURS TOPICAL PATCH TD SCH (11:41)
[2022-02-26] MEDS: PRENATAL VITAMINS W/ FOLIC ACID TABLET (FP) PO SCH (11:42)
[2022-02-26] MEDS: THIAMINE HCL 100 MG TABLET (FP) PO SCH (21:13)
[2022-02-26] MEDS: MELATONIN 5 MG TABLETS PO SCH (21:13)
[2022-02-26] MEDS: LEVETIRACETAM 750 MG PO SCH (21:14)
[2022-02-26] MEDS: ATORVASTATIN CA 40 MG TABLET (FP) PO SCH (21:14)
[2022-02-26] MEDS ORDERED: levETIRAcetam 500 MG TABLET (FP) PO SCH ×2 (22:00)
[2022-02-27] MEDS ORDERED: levETIRAcetam 500 MG TABLET (FP) PO ONE (11:43)
[2022-02-27] MEDS: NICOTINE 14 MG/24 HOURS TOPICAL PATCH TD SCH (12:57)
[2022-02-27] MEDS: amLODIPine BESYLATE 2.5 MG TABLET (FP) PO SCH (12:57)
[2022-02-27] MEDS: PHENYTOIN NA EXTENDED 100 MG CAPSULE (FP) PO SCH ×2 (12:57→21:23)
[2022-02-27] MEDS: levETIRAcetam 500 MG TABLET (FP) PO SCH ×2 (12:59→21:25)
[2022-02-27] MEDS: PRENATAL VITAMINS W/ FOLIC ACID TABLET (FP) PO SCH (12:59)
[2022-02-27 13:32] LABS: URINE APPEARANCE CLEAR; URINE BILIRUBIN NEGATIVE (NEGATIVE); URINE COLOR YELLOW; URINE GLUCOSE (UA) NEGATIVE (NEGATIVE); URINE KETONE NEGATIVE (NEGATIVE); URINE LEUK ESTERASE NEGATIVE (NEGATIVE); URINE NITRITE NEGATIVE (NEGATIVE); URINE PROTEIN NEGATIVE (NEGATIVE); URINE UROBILINOGEN 0.2 mg/dL (0.2-1.0)
[2022-02-27] MEDS: LEVETIRACETAM 750 MG PO SCH (13:46)
[2022-02-27] MEDS: MELATONIN 5 MG TABLETS PO SCH (21:22)
[2022-02-27] MEDS: THIAMINE HCL 100 MG TABLET (FP) PO SCH (21:22)
[2022-02-27] MEDS: ATORVASTATIN CA 40 MG TABLET (FP) PO SCH (21:24)
[2022-02-28] MEDS: PHENYTOIN NA EXTENDED 100 MG CAPSULE (FP) PO SCH ×2 (10:00→21:21)
[2022-02-28] MEDS: levETIRAcetam 500 MG TABLET (FP) PO SCH ×3 (10:01→21:20)
[2022-02-28] MEDS: NICOTINE 14 MG/24 HOURS TOPICAL PATCH TD SCH (10:01)
[2022-02-28] MEDS: PRENATAL VITAMINS W/ FOLIC ACID TABLET (FP) PO SCH (10:01)
[2022-02-28] MEDS: amLODIPine BESYLATE 2.5 MG TABLET (FP) PO SCH (10:01)
[2022-02-28] MEDS ORDERED: METHYL SALICYLATE/MENTHOL OINT 30 GM TUBE TP ONE (17:57)
[2022-02-28] MEDS: METHOCARBAMOL 500 MG TABLET PO PRN (21:21)
[2022-02-28] MEDS: MELATONIN 5 MG TABLETS PO SCH (21:21)
[2022-02-28] MEDS: THIAMINE HCL 100 MG TABLET (FP) PO SCH (21:21)
[2022-02-28] MEDS: ATORVASTATIN CA 40 MG TABLET (FP) PO SCH (21:21)
[2022-03-01] MEDS ORDERED: NON-FORMULARY MED PO SCH (10:24)
[2022-03-01] MEDS: NICOTINE 14 MG/24 HOURS TOPICAL PATCH TD SCH (10:49)
[2022-03-01] MEDS: PRENATAL VITAMINS W/ FOLIC ACID TABLET (FP) PO SCH (10:50)
[2022-03-01] MEDS: amLODIPine BESYLATE 2.5 MG TABLET (FP) PO SCH (10:50)
[2022-03-01] MEDS: PHENYTOIN NA EXTENDED 100 MG CAPSULE (FP) PO SCH ×3 (10:50→21:05)
[2022-03-01] MEDS: levETIRAcetam 500 MG TABLET (FP) PO SCH ×2 (10:51→21:06)
[2022-03-01] MEDS: METHOCARBAMOL 500 MG TABLET PO PRN ×2 (10:56→21:06)
[2022-03-01] MEDS: ATORVASTATIN CA 40 MG TABLET (FP) PO SCH (21:05)
[2022-03-01] MEDS: MELATONIN 5 MG TABLETS PO SCH (21:05)
[2022-03-01] MEDS: THIAMINE HCL 100 MG TABLET (FP) PO SCH (21:05)
[2022-03-02 08:06] LABS: SARS-CoV-2 NAA Not Detected (Not Detected)
[2022-03-02] MEDS: levETIRAcetam 500 MG TABLET (FP) PO SCH ×2 (10:14→21:15)
[2022-03-02] MEDS: PHENYTOIN NA EXTENDED 100 MG CAPSULE (FP) PO SCH ×2 (10:14→21:15)
[2022-03-02] MEDS: NICOTINE 14 MG/24 HOURS TOPICAL PATCH TD SCH (10:14)
[2022-03-02] MEDS: amLODIPine BESYLATE 2.5 MG TABLET (FP) PO SCH (10:15)
[2022-03-02] MEDS: PRENATAL VITAMINS W/ FOLIC ACID TABLET (FP) PO SCH (10:15)
[2022-03-02] MEDS: METHOCARBAMOL 500 MG TABLET PO PRN ×2 (10:15→21:16)
[2022-03-02] MEDS: THIAMINE HCL 100 MG TABLET (FP) PO SCH (21:15)
[2022-03-02] MEDS: ATORVASTATIN CA 40 MG TABLET (FP) PO SCH (21:15)
[2022-03-02] MEDS: MELATONIN 5 MG TABLETS PO SCH (21:15)
[2022-03-03] MEDS: levETIRAcetam 500 MG TABLET (FP) PO SCH ×2 (10:00→21:01)
[2022-03-03] MEDS: amLODIPine BESYLATE 2.5 MG TABLET (FP) PO SCH (10:00)
[2022-03-03] MEDS: PHENYTOIN NA EXTENDED 100 MG CAPSULE (FP) PO SCH ×2 (10:00→21:01)
[2022-03-03] MEDS: NICOTINE 14 MG/24 HOURS TOPICAL PATCH TD SCH (10:01)
[2022-03-03] MEDS: PRENATAL VITAMINS W/ FOLIC ACID TABLET (FP) PO SCH (10:01)
[2022-03-03] MEDS: METHOCARBAMOL 500 MG TABLET PO PRN ×2 (10:02→21:01)
[2022-03-03] MEDS: ATORVASTATIN CA 40 MG TABLET (FP) PO SCH (21:01)
[2022-03-03] MEDS: THIAMINE HCL 100 MG TABLET (FP) PO SCH (21:01)
[2022-03-03] MEDS: MELATONIN 5 MG TABLETS PO SCH (21:01)
[2022-03-04] MEDS: NICOTINE 14 MG/24 HOURS TOPICAL PATCH TD SCH (10:16)
[2022-03-04] MEDS: PHENYTOIN NA EXTENDED 100 MG CAPSULE (FP) PO SCH ×2 (10:16→21:14)
[2022-03-04] MEDS: PRENATAL VITAMINS W/ FOLIC ACID TABLET (FP) PO SCH (10:16)
[2022-03-04] MEDS: levETIRAcetam 500 MG TABLET (FP) PO SCH ×2 (10:17→21:14)
[2022-03-04] MEDS: amLODIPine BESYLATE 2.5 MG TABLET (FP) PO SCH (13:16)
[2022-03-04] MEDS: METHOCARBAMOL 500 MG TABLET PO PRN ×2 (16:03→21:16)
[2022-03-04] MEDS ORDERED: METHOCARBAMOL 500 MG TABLET PO SCH (18:00)
[2022-03-04] MEDS: THIAMINE HCL 100 MG TABLET (FP) PO SCH (21:14)
[2022-03-04] MEDS: ATORVASTATIN CA 40 MG TABLET (FP) PO SCH (21:14)
[2022-03-04] MEDS: MELATONIN 5 MG TABLETS PO SCH (21:14)
[2022-03-05] MEDS: METHOCARBAMOL 500 MG TABLET PO PRN ×3 (09:23→21:17)
[2022-03-05] MEDS: levETIRAcetam 500 MG TABLET (FP) PO SCH ×2 (09:23→21:16)
[2022-03-05] MEDS: PHENYTOIN NA EXTENDED 100 MG CAPSULE (FP) PO SCH ×2 (09:24→21:17)
[2022-03-05] MEDS: NICOTINE 14 MG/24 HOURS TOPICAL PATCH TD SCH (10:20)
[2022-03-05] MEDS: PRENATAL VITAMINS W/ FOLIC ACID TABLET (FP) PO SCH (10:21)
[2022-03-05] MEDS: amLODIPine BESYLATE 2.5 MG TABLET (FP) PO SCH (10:28)
[2022-03-05] MEDS: MELATONIN 5 MG TABLETS PO SCH (21:17)
[2022-03-05] MEDS: ATORVASTATIN CA 40 MG TABLET (FP) PO SCH (21:17)
[2022-03-05] MEDS: THIAMINE HCL 100 MG TABLET (FP) PO SCH (21:17)
[2022-03-06] MEDS: METHOCARBAMOL 500 MG TABLET PO PRN ×3 (06:07→21:07)
[2022-03-06] MEDS: levETIRAcetam 500 MG TABLET (FP) PO SCH ×2 (10:22→21:07)
[2022-03-06] MEDS: PHENYTOIN NA EXTENDED 100 MG CAPSULE (FP) PO SCH ×2 (10:22→21:07)
[2022-03-06] MEDS: amLODIPine BESYLATE 2.5 MG TABLET (FP) PO SCH (10:23)
[2022-03-06] MEDS: PRENATAL VITAMINS W/ FOLIC ACID TABLET (FP) PO SCH (10:23)
[2022-03-06] MEDS: NICOTINE 14 MG/24 HOURS TOPICAL PATCH TD SCH (10:23)
[2022-03-06] MEDS: MELATONIN 5 MG TABLETS PO SCH (21:07)
[2022-03-06] MEDS: THIAMINE HCL 100 MG TABLET (FP) PO SCH (21:07)
[2022-03-06] MEDS: ATORVASTATIN CA 40 MG TABLET (FP) PO SCH (21:07)
[2022-03-07] MEDS: METHOCARBAMOL 500 MG TABLET PO PRN ×3 (07:11→21:12)
[2022-03-07] MEDS: levETIRAcetam 500 MG TABLET (FP) PO SCH ×2 (09:53→21:10)
[2022-03-07] MEDS: PRENATAL VITAMINS W/ FOLIC ACID TABLET (FP) PO SCH (09:53)
[2022-03-07] MEDS: amLODIPine BESYLATE 2.5 MG TABLET (FP) PO SCH (09:54)
[2022-03-07] MEDS: PHENYTOIN NA EXTENDED 100 MG CAPSULE (FP) PO SCH ×2 (09:54→21:11)
[2022-03-07] MEDS: NICOTINE 14 MG/24 HOURS TOPICAL PATCH TD SCH (09:54)
[2022-03-07] MEDS ORDERED: PHENYTOIN NA EXTENDED 100 MG CAPSULE (FP) PO ONE (10:02)
[2022-03-07] MEDS: THIAMINE HCL 100 MG TABLET (FP) PO SCH (21:10)
[2022-03-07] MEDS: MELATONIN 5 MG TABLETS PO SCH (21:10)
[2022-03-07] MEDS: ATORVASTATIN CA 40 MG TABLET (FP) PO SCH (21:11)
[2022-03-08] MEDS: PHENYTOIN NA EXTENDED 100 MG CAPSULE (FP) PO SCH ×3 (06:14→21:26)
[2022-03-08] MEDS: METHOCARBAMOL 500 MG TABLET PO PRN ×3 (06:17→21:27)
[2022-03-08] MEDS: levETIRAcetam 500 MG TABLET (FP) PO SCH ×2 (10:34→21:26)
[2022-03-08] MEDS: NICOTINE 14 MG/24 HOURS TOPICAL PATCH TD SCH (10:34)
[2022-03-08] MEDS: PRENATAL VITAMINS W/ FOLIC ACID TABLET (FP) PO SCH (10:34)
[2022-03-08] MEDS: amLODIPine BESYLATE 2.5 MG TABLET (FP) PO SCH (13:04)
[2022-03-08 15:38] LABS: PH,URINE 5.5 (5.0-8.0); URINE APPEARANCE CLEAR; URINE BILIRUBIN NEGATIVE (NEGATIVE); URINE COLOR YELLOW; URINE GLUCOSE (UA) NEGATIVE (NEGATIVE); URINE KETONE NEGATIVE (NEGATIVE); URINE LEUK ESTERASE NEGATIVE (NEGATIVE); URINE NITRITE NEGATIVE (NEGATIVE); URINE PROTEIN NEGATIVE (NEGATIVE); URINE UROBILINOGEN 0.2 mg/dL (0.2-1.0)
[2022-03-08] MEDS: MELATONIN 5 MG TABLETS PO SCH (21:26)
[2022-03-08] MEDS: ATORVASTATIN CA 40 MG TABLET (FP) PO SCH (21:26)
[2022-03-08] MEDS: THIAMINE HCL 100 MG TABLET (FP) PO SCH (21:27)
[2022-03-09] MEDS: PHENYTOIN NA EXTENDED 100 MG CAPSULE (FP) PO SCH ×3 (06:05→21:29)
[2022-03-09] MEDS: METHOCARBAMOL 500 MG TABLET PO PRN ×3 (06:06→21:27)
[2022-03-09] MEDS: levETIRAcetam 500 MG TABLET (FP) PO SCH ×2 (10:33→21:28)
[2022-03-09] MEDS: NICOTINE 14 MG/24 HOURS TOPICAL PATCH TD SCH (10:34)
[2022-03-09] MEDS: PRENATAL VITAMINS W/ FOLIC ACID TABLET (FP) PO SCH (10:34)
[2022-03-09] MEDS: amLODIPine BESYLATE 2.5 MG TABLET (FP) PO SCH (10:35)
[2022-03-09 11:52] LABS: ALBUMIN 3.7 g/dl (3.4-5.0); CALCIUM 8.6 mg/dL (8.5-10.1)
[2022-03-09 11:53] LABS: BLOOD UREA NITROGEN 15.1 mg/dL (7-18)
[2022-03-09 11:57] LABS: BILIRUBIN,TOTAL 0.3 mg/dL (0.2-1); TOT PROT 6.8 g/dl (6.4-8.2)
[2022-03-09] MEDS: MELATONIN 5 MG TABLETS PO SCH (21:29)
[2022-03-09] MEDS: THIAMINE HCL 100 MG TABLET (FP) PO SCH (21:29)
[2022-03-09] MEDS: ATORVASTATIN CA 40 MG TABLET (FP) PO SCH (21:29)
[2022-03-10] MEDS: PHENYTOIN NA EXTENDED 100 MG CAPSULE (FP) PO SCH ×3 (06:13→21:17)
[2022-03-10] MEDS: METHOCARBAMOL 500 MG TABLET PO PRN ×3 (06:13→18:47)
[2022-03-10] MEDS: PRENATAL VITAMINS W/ FOLIC ACID TABLET (FP) PO SCH (10:21)
[2022-03-10] MEDS: amLODIPine BESYLATE 2.5 MG TABLET (FP) PO SCH (10:22)
[2022-03-10] MEDS: NICOTINE 14 MG/24 HOURS TOPICAL PATCH TD SCH (10:22)
[2022-03-10] MEDS: levETIRAcetam 500 MG TABLET (FP) PO SCH ×2 (10:22→21:16)
[2022-03-10] MEDS: THIAMINE HCL 100 MG TABLET (FP) PO SCH (21:17)
[2022-03-10] MEDS: ATORVASTATIN CA 40 MG TABLET (FP) PO SCH (21:17)
[2022-03-10] MEDS: MELATONIN 5 MG TABLETS PO SCH (21:17)
[2022-03-11] MEDS: PHENYTOIN NA EXTENDED 100 MG CAPSULE (FP) PO SCH ×3 (06:17→21:23)
[2022-03-11] MEDS: METHOCARBAMOL 750 MG TAB PO PRN ×2 (08:31→21:23)
[2022-03-11] MEDS: PRENATAL VITAMINS W/ FOLIC ACID TABLET (FP) PO SCH (09:58)
[2022-03-11] MEDS: levETIRAcetam 500 MG TABLET (FP) PO SCH ×2 (09:58→21:22)
[2022-03-11] MEDS: NICOTINE 14 MG/24 HOURS TOPICAL PATCH TD SCH (09:59)
[2022-03-11] MEDS: amLODIPine BESYLATE 2.5 MG TABLET (FP) PO SCH (09:59)
[2022-03-11] MEDS: MELATONIN 5 MG TABLETS PO SCH (21:23)
[2022-03-11] MEDS: ATORVASTATIN CA 40 MG TABLET (FP) PO SCH (21:23)
[2022-03-11] MEDS: THIAMINE HCL 100 MG TABLET (FP) PO SCH (21:23)
[2022-03-12] MEDS: METHOCARBAMOL 750 MG TAB PO PRN ×3 (07:05→21:17)
[2022-03-12] MEDS: PHENYTOIN NA EXTENDED 100 MG CAPSULE (FP) PO SCH ×3 (07:05→21:13)
[2022-03-12] MEDS: PRENATAL VITAMINS W/ FOLIC ACID TABLET (FP) PO SCH (09:10)
[2022-03-12] MEDS: NICOTINE 14 MG/24 HOURS TOPICAL PATCH TD SCH (09:10)
[2022-03-12] MEDS: levETIRAcetam 500 MG TABLET (FP) PO SCH ×2 (09:10→21:13)
[2022-03-12] MEDS: ATORVASTATIN CA 40 MG TABLET (FP) PO SCH (21:13)
[2022-03-12] MEDS: THIAMINE HCL 100 MG TABLET (FP) PO SCH (21:14)
[2022-03-12] MEDS: MELATONIN 5 MG TABLETS PO SCH (21:14)
[2022-03-13] MEDS: METHOCARBAMOL 750 MG TAB PO PRN ×3 (06:03→21:17)
[2022-03-13] MEDS: PHENYTOIN NA EXTENDED 100 MG CAPSULE (FP) PO SCH ×3 (06:03→21:17)
[2022-03-13] MEDS: levETIRAcetam 500 MG TABLET (FP) PO SCH ×2 (10:31→21:18)
[2022-03-13] MEDS: NICOTINE 14 MG/24 HOURS TOPICAL PATCH TD SCH (10:31)
[2022-03-13] MEDS: PRENATAL VITAMINS W/ FOLIC ACID TABLET (FP) PO SCH (10:31)
[2022-03-13] MEDS: ATORVASTATIN CA 40 MG TABLET (FP) PO SCH (21:17)
[2022-03-13] MEDS: THIAMINE HCL 100 MG TABLET (FP) PO SCH (21:17)
[2022-03-13] MEDS: MELATONIN 5 MG TABLETS PO SCH (21:17)
[2022-03-14] MEDS: PHENYTOIN NA EXTENDED 100 MG CAPSULE (FP) PO SCH ×3 (06:06→21:19)
[2022-03-14] MEDS: METHOCARBAMOL 750 MG TAB PO PRN (06:07)
[2022-03-14] MEDS: NICOTINE 14 MG/24 HOURS TOPICAL PATCH TD SCH (14:11)
[2022-03-14] MEDS: levETIRAcetam 500 MG TABLET (FP) PO SCH ×2 (14:11→21:19)
[2022-03-14] MEDS: PRENATAL VITAMINS W/ FOLIC ACID TABLET (FP) PO SCH (14:11)
[2022-03-14] MEDS ORDERED: BACLOFEN 10 MG TABLET (FP) PO PRN (15:19)
[2022-03-14] MEDS: CYCLOBENZAPRINE HCL 10 MG TABLET (FP) PO PRN ×2 (16:40→21:21)
[2022-03-14] MEDS: THIAMINE HCL 100 MG TABLET (FP) PO SCH (21:20)
[2022-03-14] MEDS: MELATONIN 5 MG TABLETS PO SCH (21:20)
[2022-03-14] MEDS: ATORVASTATIN CA 40 MG TABLET (FP) PO SCH (21:20)
[2022-03-15] MEDS: PHENYTOIN NA EXTENDED 100 MG CAPSULE (FP) PO SCH ×3 (06:47→21:16)
[2022-03-15] MEDS: CYCLOBENZAPRINE HCL 10 MG TABLET (FP) PO PRN ×3 (06:49→21:17)
[2022-03-15 10:01] LABS: ALBUMIN 4.1 g/dl (3.4-5.0); BLOOD UREA NITROGEN 14.7 mg/dL (7-18)
[2022-03-15 10:04] LABS: CALCIUM 9.2 mg/dL (8.5-10.1)
[2022-03-15 10:06] LABS: BILIRUBIN,TOTAL 0.4 mg/dL (0.2-1); TOT PROT 7.4 g/dl (6.4-8.2)
[2022-03-15] MEDS: PRENATAL VITAMINS W/ FOLIC ACID TABLET (FP) PO SCH (10:20)
[2022-03-15] MEDS: NICOTINE 14 MG/24 HOURS TOPICAL PATCH TD SCH (10:20)
[2022-03-15] MEDS: levETIRAcetam 500 MG TABLET (FP) PO SCH ×2 (10:20→21:16)
[2022-03-15] MEDS: MELATONIN 5 MG TABLETS PO SCH (21:16)
[2022-03-15] MEDS: ATORVASTATIN CA 40 MG TABLET (FP) PO SCH (21:16)
[2022-03-15] MEDS: THIAMINE HCL 100 MG TABLET (FP) PO SCH (21:16)
[2022-03-16] MEDS: PHENYTOIN NA EXTENDED 100 MG CAPSULE (FP) PO SCH ×3 (06:18→21:12)
[2022-03-16] MEDS: levETIRAcetam 500 MG TABLET (FP) PO SCH ×2 (10:34→21:12)
[2022-03-16] MEDS: PRENATAL VITAMINS W/ FOLIC ACID TABLET (FP) PO SCH (10:34)
[2022-03-16] MEDS: NICOTINE 14 MG/24 HOURS TOPICAL PATCH TD SCH (10:34)
[2022-03-16] MEDS: CYCLOBENZAPRINE HCL 10 MG TABLET (FP) PO PRN ×2 (13:25→21:13)
[2022-03-16] MEDS: THIAMINE HCL 100 MG TABLET (FP) PO SCH (21:12)
[2022-03-16] MEDS: ATORVASTATIN CA 40 MG TABLET (FP) PO SCH (21:12)
[2022-03-16] MEDS: MELATONIN 5 MG TABLETS PO SCH (21:12)
[2022-03-17] MEDS: PHENYTOIN NA EXTENDED 100 MG CAPSULE (FP) PO SCH ×3 (06:02→21:15)
[2022-03-17] MEDS: CYCLOBENZAPRINE HCL 10 MG TABLET (FP) PO PRN ×3 (06:04→21:16)
[2022-03-17] MEDS: PRENATAL VITAMINS W/ FOLIC ACID TABLET (FP) PO SCH (10:55)
[2022-03-17] MEDS: levETIRAcetam 500 MG TABLET (FP) PO SCH ×2 (10:55→21:15)
[2022-03-17] MEDS: NICOTINE 14 MG/24 HOURS TOPICAL PATCH TD SCH (10:57)
[2022-03-17] MEDS: THIAMINE HCL 100 MG TABLET (FP) PO SCH (21:15)
[2022-03-17] MEDS: ATORVASTATIN CA 40 MG TABLET (FP) PO SCH (21:15)
[2022-03-17] MEDS: MELATONIN 5 MG TABLETS PO SCH (21:15)
[2022-03-18] MEDS: PHENYTOIN NA EXTENDED 100 MG CAPSULE (FP) PO SCH (06:24)
[2022-03-18] MEDS: CYCLOBENZAPRINE HCL 10 MG TABLET (FP) PO PRN (06:27)
[2022-03-18 07:05] VITALS: BP 95/64; PULSE 60; TEMP 97.5
[2022-03-18] MEDS: PRENATAL VITAMINS W/ FOLIC ACID TABLET (FP) PO SCH (09:08)
[2022-03-18] MEDS: levETIRAcetam 500 MG TABLET (FP) PO SCH (09:08)
== END 2022-03-18 10:22 | disposition home or self-care (01) | DRG 772 ==
LOC: YASAS 21:06 → Y3W 02-26 09:02
PROVIDERS: ADMIT Allergy & Immunology; ATTEND Allergy & Immunology
PROC: HZ42ZZZ Group Counseling for Substance Abuse Treatment, Cognitive-Behavioral (ICD-10-PCS; principal; 2022-02-26)
DX: F10.20 Alcohol dependence, uncomplicated (principal); F14.20 Cocaine dependence, uncomplicated; F17.210 Nicotine dependence, cigarettes, uncomplicated; G40.509 Epileptic seizures related to external causes, not intractable, without status epilepticus; H53.001 Unspecified amblyopia, right eye; R07.9 Chest pain, unspecified; Z86.19 Personal history of other infectious and parasitic diseases; Z89.022 Acquired absence of left finger(s); S01.81XA Laceration without foreign body of other part of head, initial encounter; W19.XXXA Unspecified fall, initial encounter; Y92.239 Unspecified place in hospital as the place of occurrence of the external cause; Z91.14 Patient's other noncompliance with medication regimen; Z59.01 Sheltered homelessness
CPT/HCPCS: 36415; 70450-TC; 70486-TC; 72125-TC; 80053; 80177; 80185; 80186; 81003; 82962; 83735; 85025; 87811; 93005; 93010; 99285-25; C9803-CS; U0003; U0005

== ENCOUNTER 2022-03-14 09:21 | Emergency (ER) | payer OTHER ==
[2022-03-14 09:41] VITALS: BMI 21.7
[2022-03-14 10:13] LABS: BASO % 1.2 % (0-2.0); HEMATOCRIT 41.8 % (35.4-49); HEMOGLOBIN 13.7 GM/dL (11.7-16.9); LYMPH % 24.8 % (8-40); MCH 34.4 pg (25.7-33.7); MCHC 32.8 g/dl (32.0-35.9); MEAN PLT VOLUME 9.6 fl (7.5-11.1); PLATELET COUNT 222 10^3/uL (134-434); RBC 3.98 M/mm3 (4.00-5.60); RDW 12.8 % (11.9-15.9); WHITE BLOOD COUNT 4.1 K/mm3 (4.0-10.0)
[2022-03-14 10:34] LABS: CALCIUM 9.3 mg/dL (8.5-10.1)
[2022-03-14 10:35] LABS: ALBUMIN 4.1 g/dl (3.4-5.0); BLOOD UREA NITROGEN 13.4 mg/dL (7-18)
[2022-03-14 10:39] LABS: TOT PROT 7.4 g/dl (6.4-8.2)
[2022-03-14 10:40] LABS: BILIRUBIN,TOTAL 0.2 mg/dL (0.2-1)
[2022-03-14 10:55] LABS: MAGNESIUM 2.2 mg/dL (1.8-2.4)
[2022-03-14] MEDS ORDERED: SODIUM CHLORIDE 0.9% 500 ML INFUS.BAG IV ONE (11:11)
[2022-03-14] MEDS ORDERED: SODIUM ZIRCONIUM CYCLOSILICATE (LOKELMA) 5 GM PACKET PO SCH (11:15)
[2022-03-14 11:25] LABS: ANISOCYTOSIS 1+; MACROCYTOSIS 0
[2022-03-14] MEDS ORDERED: levETIRAcetam 500 MG TABLET (FP) PO ONE ×2 (12:34→12:36)
[2022-03-14 12:53] VITALS: BP 140/82; PULSE 64; TEMP 98
== END 2022-03-14 12:50 | disposition home or self-care (01) ==
LOC: JER 09:21
PROC: 0HQ1XZZ Repair Face Skin, External Approach (ICD-10-PCS; principal; 2022-03-14)
DX: R56.9 Unspecified convulsions (principal); S01.81XA Laceration without foreign body of other part of head, initial encounter; W19.XXXA Unspecified fall, initial encounter
CPT/HCPCS: 36415; 70450-TC; 70486-TC; 72125-TC; 80053; 80177; 80185; 83735; 85025; 93005; 93010; 99285-25

== ENCOUNTER 2025-02-07 12:12 | Inpatient (IN) | payer OTHER ==
[2025-02-07] MEDS ORDERED: NICOTINE POLACRILEX 4 MG GUM BUC PRN (13:06)
[2025-02-07] MEDS ORDERED: guaiFENesin 600 MG TABLET.ER (FP) PO PRN (13:06)
[2025-02-07] MEDS ORDERED: POLYETHYLENE GLYCOL (HEALTHYLAX) 3350 17 GM PACKET PO PRN (13:06)
[2025-02-07] MEDS ORDERED: BISMUTH SUBSALICYLATE 262 MG/15 ML BTL PO PRN (13:06)
[2025-02-07] MEDS ORDERED: LOPERAMIDE HCL 2 MG CAPSULE PO PRN (13:06)
[2025-02-07] MEDS ORDERED: ACETAMINOPHEN 325 MG TABLET (FP) PO PRN (13:06)
[2025-02-07] MEDS ORDERED: BENZONATATE 200 MG CAPSULE PO PRN (13:06)
[2025-02-07] MEDS ORDERED: BENZOCAINE/MENTHOL (CHLORASEPTIC ) LOZENGE MM PRN (13:06)
[2025-02-07] MEDS ORDERED: IBUPROFEN 400 MG TABLET (FP) PO PRN (13:06)
[2025-02-07] MEDS ORDERED: MAGNESIUM HYDROX 2400MG/30ML ORAL SUSPENSION 30 ML CUP PO PRN (13:06)
[2025-02-07] MEDS ORDERED: IBUPROFEN 600 MG TABLET (FP) PO PRN (13:06)
[2025-02-07] MEDS ORDERED: ONDANSETRON *ODT* 4 MG TABLET SL PRN (13:06)
[2025-02-07] MEDS ORDERED: DICYCLOMINE HCL 10 MG CAPSULE PO PRN (13:06)
[2025-02-07] MEDS ORDERED: diazePAM 5 MG TABLET PO PRN (13:06)
[2025-02-07] MEDS ORDERED: MAG HYDROX/AL HYDROX/SIMETH 30 ML UNIT-DOSE CUP PO PRN (13:06)
[2025-02-07] MEDS ORDERED: NALOXONE (NARCAN) HCL 4 MG/0.1 ML SPRAY NS PRN (13:06)
[2025-02-07] MEDS ORDERED: hydrOXYzine PAMOATE 25 MG CAPSULE (FP) PO PRN (13:06)
[2025-02-07] MEDS ORDERED: CycloBENZAprine HCL 10 MG TABLET (FP) PO PRN (13:16)
[2025-02-07 14:29] VITALS: BMI 23.1
[2025-02-07] MEDS: PRENATAL VITAMINS W/ FOLIC ACID TABLET (FP) PO SCH (14:29)
[2025-02-07] MEDS: diazePAM 5 MG TABLET PO SCH (17:55)
[2025-02-07] MEDS: levETIRAcetam 500 MG TABLET (FP) PO SCH ×2 (21:41→22:47)
[2025-02-07] MEDS: ATORVASTATIN CA 40 MG TABLET (FP) PO SCH (21:41)
[2025-02-07] MEDS: THIAMINE 100 MG TABLET PO SCH (21:41)
[2025-02-07] MEDS: MELATONIN 5 MG TABLETS PO SCH (22:46)
[2025-02-08 11:02] LABS: HEMATOCRIT 39.8 % (40.1-51.0); HEMOGLOBIN 13.1 g/dL (13.7-17.5); MCHC 32.9 g/dl (32.3-36.5); MEAN PLT VOLUME 12.1 fl (9.4-12.4); PLATELET COUNT # 208 x10^3/uL (163-337)
[2025-02-08 11:06] LABS: POTASSIUM 4.1 mmol/L (3.5-5.1)
[2025-02-08 11:15] LABS: ALBUMIN 4.1 g/dl (3.4-5.0); CALCIUM 9.4 mg/dL (8.5-10.1)
[2025-02-08 11:18] LABS: CREATININE 1.1 mg/dL (0.55-1.3)
[2025-02-08 11:20] LABS: TOT PROT 7.7 g/dl (6.4-8.2)
[2025-02-08 11:22] LABS: BILIRUBIN,TOTAL 0.7 mg/dL (0.2-1)
[2025-02-08] MEDS: levETIRAcetam 500 MG TABLET (FP) PO SCH (22:38)
[2025-02-09] MEDS: diazePAM 5 MG TABLET PO SCH (06:22)
[2025-02-09 21:16] VITALS: RESP 16
[2025-02-10] MEDS: diazePAM 5 MG TABLET PO SCH (06:38)
[2025-02-10] MEDS: METHOCARBAMOL 500 MG TABLET PO PRN (22:17)
[2025-02-11] MEDS: diazePAM 5 MG TABLET PO ONE (06:12)
[2025-02-11 09:07] VITALS: BP 121/78; PULSE 96; TEMP 97.7
== END 2025-02-11 11:02 | disposition home or self-care (01) | DRG 774 ==
LOC: YASAS 12:12 → Y6N 13:41
PROVIDERS: ADMIT Allergy & Immunology; ATTEND Allergy & Immunology
PROC: HZ2ZZZZ Detoxification Services for Substance Abuse Treatment (ICD-10-PCS; principal; 2025-02-07)
DX: F10.230 Alcohol dependence with withdrawal, uncomplicated (principal); F14.20 Cocaine dependence, uncomplicated; F17.210 Nicotine dependence, cigarettes, uncomplicated; G40.909 Epilepsy, unspecified, not intractable, without status epilepticus; H53.001 Unspecified amblyopia, right eye; Z86.19 Personal history of other infectious and parasitic diseases; Z59.01 Sheltered homelessness
CPT/HCPCS: 36415; 80053; 80305; 80307; 82962; 85027; 86593; 86780; 93005; 93010

== ENCOUNTER 2025-08-05 11:17 | Inpatient (IN) | payer OTHER ==
[2025-08-05 13:25] VITALS: BMI 23.4
[2025-08-05] MEDS ORDERED: METHOCARBAMOL 500 MG TABLET PO PRN (13:42)
[2025-08-05] MEDS ORDERED: LOPERAMIDE HCL 2 MG CAPSULE PO PRN (13:42)
[2025-08-05] MEDS ORDERED: IBUPROFEN 400 MG TABLET (FP) PO PRN (13:42)
[2025-08-05] MEDS ORDERED: NALOXONE (NARCAN) HCL 4 MG/0.1 ML SPRAY NS PRN (13:42)
[2025-08-05] MEDS ORDERED: BENZOCAINE/MENTHOL (CHLORASEPTIC ) LOZENGE MM PRN (13:42)
[2025-08-05] MEDS ORDERED: MAGNESIUM HYDROX 2400MG/30ML ORAL SUSPENSION 30 ML CUP PO PRN (13:42)
[2025-08-05] MEDS ORDERED: ACETAMINOPHEN 325 MG TABLET (FP) PO PRN (13:42)
[2025-08-05] MEDS ORDERED: ONDANSETRON *ODT* 4 MG TABLET SL PRN (13:42)
[2025-08-05] MEDS ORDERED: MAG HYDROX/AL HYDROX/SIMETH 30 ML UNIT-DOSE CUP PO PRN (13:42)
[2025-08-05] MEDS ORDERED: DICYCLOMINE HCL 10 MG CAPSULE PO PRN (13:42)
[2025-08-05] MEDS ORDERED: BISMUTH SUBSALICYLATE 524 MG/30 ML PO PRN (13:42)
[2025-08-05] MEDS ORDERED: guaiFENesin 600 MG TABLET.ER (FP) PO PRN (13:42)
[2025-08-05] MEDS ORDERED: BENZONATATE 200 MG CAPSULE PO PRN (13:42)
[2025-08-05] MEDS ORDERED: hydrOXYzine PAMOATE 25 MG CAPSULE (FP) PO PRN (13:42)
[2025-08-05] MEDS ORDERED: IBUPROFEN 600 MG TABLET (FP) PO PRN (13:42)
[2025-08-05] MEDS ORDERED: POLYETHYLENE GLYCOL (HEALTHYLAX) 3350 17 GM PACKET PO PRN (13:42)
[2025-08-05] MEDS ORDERED: ALBUTEROL SO4 HFA INHALER IH PRN (18:30)
[2025-08-05] MEDS ORDERED: levETIRAcetam 500 MG TABLET (FP) PO SCH (22:00)
[2025-08-05] MEDS: levETIRAcetam 500 MG TABLET (FP) PO SCH (22:36)
[2025-08-05] MEDS: THIAMINE 100 MG TABLET PO SCH (22:37)
[2025-08-05] MEDS: FAMOTIDINE 20 MG TABLET PO SCH (22:37)
[2025-08-05] MEDS: ATORVASTATIN CA 40 MG TABLET (FP) PO SCH (22:37)
[2025-08-05] MEDS: GABAPENTIN 100 MG CAPSULE PO SCH (22:40)
[2025-08-05] MEDS: MELATONIN 5 MG TABLETS PO SCH (22:45)
[2025-08-06] MEDS: ASPIRIN 81 MG CHEWABLE TABLETS PO SCH (10:24)
[2025-08-06] MEDS: UMECLIDINIUM/VILANTEROL (ANORO) 62.5/25 MCG INHALER IH SCH (10:25)
[2025-08-06] MEDS: PRENATAL VITAMINS W/ FOLIC ACID TABLET (FP) PO SCH (10:25)
[2025-08-06] MEDS ORDERED: ATORVASTATIN CA 20 MG TABLET (FP) ONE (22:01)
[2025-08-07 11:03] LABS: MCHC 32.8 g/dl (32.3-36.5); MEAN CELL VOLUME 101.4 fl (79.0-92.2); MEAN PLT VOLUME 11.4 fl (9.4-12.4); RDW 12.5 % (12.2-16.4)
[2025-08-07 11:16] LABS: GLUCOSE,RANDOM 98 mg/dL (74-106); TOT PROT 5.8 g/dl (6.4-8.2)
[2025-08-07 11:17] LABS: CO2 25 mmol/L (21-32)
[2025-08-07 11:19] LABS: ALK PHOS 111 U/L (40-150)
[2025-08-07 11:22] LABS: CREATININE 0.94 mg/dL (0.55-1.3); SGOT/AST 37 U/L (5-34); SGPT/ALT 47 U/L (0-55)
[2025-08-07 11:38] LABS: HCV DIAGNOSTIC IN-HOUSE W/RFLX NON-REACTIVE (NONREACTIVE)
[2025-08-07 11:39] LABS: HIV INTERPRETATION NEGATIVE (NEGATIVE); SYPHILIS W/ RPR CONF REACTIVE (NONREACTIVE)
[2025-08-07 16:15] LABS: RPR REFLEX REACTIVE 1:1 (NONREACTIVE)
[2025-08-07] MEDS ORDERED: ATORVASTATIN CA 20 MG TABLET (FP) ONE (21:56)
[2025-08-09 09:45] VITALS: BP 116/70; PULSE 81; RESP 18; TEMP 97.1
== END 2025-08-09 10:50 | disposition home or self-care (01) | DRG 774 ==
LOC: EDBD → YASAS 11:17 → Y6N 17:36
PROVIDERS: ADMIT Student in an Organized Health Care Education/Training Program; ATTEND Counselor Addiction (Substance Use Disorder)
PROC: HZ2ZZZZ Detoxification Services for Substance Abuse Treatment (ICD-10-PCS; principal; 2025-08-05)
DX: F10.230 Alcohol dependence with withdrawal, uncomplicated (principal); F14.20 Cocaine dependence, uncomplicated; F17.210 Nicotine dependence, cigarettes, uncomplicated; E78.5 Hyperlipidemia, unspecified; G40.909 Epilepsy, unspecified, not intractable, without status epilepticus; I25.10 Atherosclerotic heart disease of native coronary artery without angina pectoris; J45.909 Unspecified asthma, uncomplicated; K21.9 Gastro-esophageal reflux disease without esophagitis; Z89.022 Acquired absence of left finger(s); Z59.01 Sheltered homelessness
CPT/HCPCS: 36415; 80053; 80307; 85027; 86593; 86780; 86803; 87389; 93005; 93010